=== PATIENT | female | born 1980 | race Caucasian/White ===

== ENCOUNTER 2024-12-03 17:55 | Emergency (ER) | payer OTHER, MEDICAID ==
[2024-12-03] MEDS ORDERED: Sodium Chloride 0.9% 2.5 ML Syringe FLUSH PRN (18:16)
[2024-12-03] MEDS ORDERED: Sodium Chloride 0.9% 10 ML Syringe FLUSH PRN (18:16)
[2024-12-03] MEDS: Lactated Ringers 1,000 ML IV ONE ×3 (18:29→20:32)
[2024-12-03 18:40] LABS: BASOPHILS ABSOLUTE AUTO 0.01 K/uL (0.00-0.20); BASOPHILS PERCENT AUTO 0.2 % (0.0-1.0); EOSINOPHILS ABSOLUTE AUTO 0.00 K/uL (0.00-0.45); EOSINOPHILS PERCENT AUTO 0.0 % (0.0-6.0); IMMATURE GRAN ABSOLUTE AUTO 0.01 K/uL (0.00-0.05); IMMATURE GRAN PERCENT AUTO 0.2 % (0.0-0.4); LYMPHOCYTES ABSOLUTE AUTO 0.48 K/uL (1.00-4.80); LYMPHOCYTES PERCENT AUTO 7.8 % (24.0-44.0); MEAN PLATELET VOLUME 9.0 fL (9.4-12.3); MONOCYTES ABSOLUTE AUTO 0.49 K/uL (0.00-0.80); MONOCYTES PERCENT AUTO 7.9 % (0.0-8.0); NEUTROPHILS ABSOLUTE AUTO 5.19 K/uL (1.80-7.70); NEUTROPHILS PERCENT AUTO 83.9 % (41.0-71.0); NRBC ABSOLUTE 0.02 K/uL (0.00-0.02); NRBC PERCENT 0.3 /100WBC (0.0-0.2); PLATELET COUNT,PLT 115 K/uL (150-400); RED BLOOD CELL COUNT 2.24 M/uL (4.10-5.30); WHITE BLOOD CELL COUNT,WBC 6.18 K/uL (3.9-11.3)
[2024-12-03 19:14] LABS: A/G RATIO 0.4 (0.9-1.6); ALANINE AMINOTRANSFERASE,ALT 20.0 IU/L (14-63); ASPARTATE AMNIOTRANSFERASE,AST 91.0 IU/L (15-37); BILIRUBIN TOTAL 0.7 mg/dL (0.2-1.0); BLOOD UREA NITROGEN,BUN 9.0 mg/dL (7.0-18.0); CARBON DIOXIDE,CO2 26.4 mmol/L (21.0-32.0); CHLORIDE,CL 93.0 mmol/L (98-107); CREATININE 0.8 mg/dL (0.6-1.0); EST CRCL DRUG DOSING (CG) 91.84 mL/min; GLUCOSE RANDOM 93.0 mg/dL (74-106); LACTIC ACID 1.5 mmol/L (0.4-2.0); POTASSIUM,K 3.7 mmol/L (3.5-5.1); PROTEIN TOTAL,TP 6.7 g/dL (6.4-8.2); SODIUM,NA 131.0 mmol/L (136-145)
[2024-12-03 19:15] LABS: ESTIMATED GFR 94.0 mL/min (>60)
[2024-12-03] MEDS: Labetalol 100 MG/20 ML MDV IVPUSH ONE (20:50)
[2024-12-03] MEDS: Iopamidol 755 MG/ML 500 ML Multipack Bottle IVPUSH STA (21:28)
[2024-12-03] MEDS: cefTRIAXone 2 GM in Water For Injection, Sterile 20 ML IVPUSH ONE (23:01)
[2024-12-04 00:44] LABS: BASE EXCESS VENOUS 4.8 (-2.0-3.0); BICARBONATE,VENOUS 29.0 mEq/L (22-29); PCO2 VENOUS 42.0 mmHG (41-51); PH,VENOUS 7.45 (7.32-7.43); PO2 VENOUS 39.0 mmHG (35-45)
== END 2024-12-04 00:09 ==
LOC: MW.ED 17:55
DX: J90 Pleural effusion, not elsewhere classified (principal); J96.90 Respiratory failure, unspecified, unspecified whether with hypoxia or hypercapnia; R18.8 Other ascites; E86.0 Dehydration; D50.9 Iron deficiency anemia, unspecified; Z88.5 Allergy status to narcotic agent; Z79.899 Other long term (current) drug therapy; Z85.41 Personal history of malignant neoplasm of cervix uteri
CPT/HCPCS: 36415; 36430; 71045; 71275; 74177; 80053; 82803; 83605; 84484; 84703; 85025; 85379; 86850; 86900; 86901; 86920; 87040; 93005; 96361; 96365; 96375; 99285; A4216; A9270; J0456; J0696; J1920; J7050; J7120; P9016; Q9967

== ENCOUNTER 2025-01-03 22:34 | Emergency (ER) | payer MEDICAID, OTHER ==
[2025-01-03] MEDS ORDERED: Sodium Chloride 0.9% 10 ML Syringe FLUSH PRN (22:42)
[2025-01-03] MEDS ORDERED: Sodium Chloride 0.9% 2.5 ML Syringe FLUSH PRN (22:42)
[2025-01-03] MEDS: Furosemide 40 MG/4 ML VIAL IVPUSH ONE (22:53)
[2025-01-03 22:59] LABS: BASE EXCESS VENOUS 4.8 (-2.0-3.0); BICARBONATE,VENOUS 28.0 mEq/L (22-29); PCO2 VENOUS 34.0 mmHG (41-51); PH,VENOUS 7.52 (7.32-7.43); PO2 VENOUS 55.0 mmHG (35-45)
[2025-01-03 23:09] LABS: BASOPHILS ABSOLUTE AUTO 0.02 K/uL (0.00-0.20); BASOPHILS PERCENT AUTO 0.2 % (0.0-1.0); EOSINOPHILS ABSOLUTE AUTO 0.04 K/uL (0.00-0.45); EOSINOPHILS PERCENT AUTO 0.4 % (0.0-6.0); IMMATURE GRAN ABSOLUTE AUTO 0.18 K/uL (0.00-0.05); IMMATURE GRAN PERCENT AUTO 2.0 % (0.0-0.4); INR 1.18 (0.86-1.11); LYMPHOCYTES ABSOLUTE AUTO 0.64 K/uL (1.00-4.80); LYMPHOCYTES PERCENT AUTO 7.2 % (24.0-44.0); MONOCYTES ABSOLUTE AUTO 0.54 K/uL (0.00-0.80); MONOCYTES PERCENT AUTO 6.1 % (0.0-8.0); NEUTROPHILS ABSOLUTE AUTO 7.48 K/uL (1.80-7.70); NEUTROPHILS PERCENT AUTO 84.1 % (41.0-71.0); NRBC ABSOLUTE 0.16 K/uL (0.00-0.02); NRBC PERCENT 1.8 /100WBC (0.0-0.2); PLATELET COUNT,PLT 23 K/uL (150-400); PTT,PARTIAL THROMBOPLSTIN TIME 35.9 SEC (23.9-30.7); RED BLOOD CELL COUNT 3.11 M/uL (4.10-5.30); WHITE BLOOD CELL COUNT,WBC 8.90 K/uL (3.9-11.3)
[2025-01-03] MEDS: LORazepam 2 MG/ML SDV IVPUSH ONE (23:11)
[2025-01-03 23:28] LABS: A/G RATIO 0.5 (0.9-1.6); ALANINE AMINOTRANSFERASE,ALT 31 IU/L (14-63); ASPARTATE AMNIOTRANSFERASE,AST 125 IU/L (15-37); BILIRUBIN TOTAL 0.7 mg/dL (0.2-1.0); BLOOD UREA NITROGEN,BUN 22 mg/dL (7.0-18.0); CARBON DIOXIDE,CO2 26.9 mmol/L (21.0-32.0); CHLORIDE,CL 92 mmol/L (98-107); CREATININE 0.6 mg/dL (0.6-1.0); GLUCOSE RANDOM 108 mg/dL (74-106); POTASSIUM,K 4.5 mmol/L (3.5-5.1); PRO B-TYPE NATRIUR PEPT,BNPPRO 440 pg/mL (0-125); PROTEIN TOTAL,TP 5.8 g/dL (6.4-8.2); SODIUM,NA 129 mmol/L (136-145)
[2025-01-03 23:32] LABS: ESTIMATED GFR 115 mL/min (>60)
[2025-01-04] MEDS: LORazepam 2 MG/ML SDV IVPUSH ONE (00:22)
[2025-01-04] MEDS: Furosemide 40 MG/4 ML VIAL IVPUSH ONE (00:23)
[2025-01-04] MEDS: Iopamidol 755 MG/ML 500 ML Multipack Bottle IVPUSH ONE (01:08)
[2025-01-04] MEDS: Ondansetron 4 MG/2 ML SDV IVPUSH ONE (01:27)
[2025-01-04 01:43] LABS: BASE EXCESS VENOUS 2.4 (-2.0-3.0); BICARBONATE,VENOUS 27.0 mEq/L (22-29); PCO2 VENOUS 42.0 mmHG (41-51); PH,VENOUS 7.42 (7.32-7.43); PO2 VENOUS 38.0 mmHG (35-45)
[2025-01-04] MEDS: Magnesium Sulfate 2 GM/50 mL 2 GM in Premix Bag 1 BAG IV ONE (03:41)
== END 2025-01-04 04:45 ==
LOC: MW.ED 22:34
DX: I21.4 Non-ST elevation (NSTEMI) myocardial infarction (principal); I50.9 Heart failure, unspecified; J81.0 Acute pulmonary edema; J96.01 Acute respiratory failure with hypoxia; J90 Pleural effusion, not elsewhere classified; Z85.9 Personal history of malignant neoplasm, unspecified; Z85.89 Personal history of malignant neoplasm of other organs and systems; Z88.5 Allergy status to narcotic agent; Z79.899 Other long term (current) drug therapy
CPT/HCPCS: 36415; 71045; 71275; 80053; 82803; 83605; 83690; 83735; 83880; 84484; 85025; 85610; 85730; 87040; 93005; 94660; 96365; 96367; 96368; 96375; 96376; 99291; A9270; J0692; J1171; J1938; J2060; J2405; J3374; J3475; J7050; Q9967; 93010